=== PATIENT | male | born 1980 ===

== ENCOUNTER 2018-04-19 08:50 | Outpatient (CLI) | payer OTHER ==
[~2018-04-19] VITALS: Ht 180.3 cm; Wt 95.3 kg
== END 2018-04-19 09:15 | disposition home or self-care (01) ==
LOC: OFIC 805 08:50
DX: R42 Dizziness and giddiness (principal); H90.3 Sensorineural hearing loss, bilateral; H93.11 Tinnitus, right ear

== ENCOUNTER 2018-07-12 12:54 | Outpatient (CLI) | payer OTHER ==
[~2018-07-12] VITALS: Ht 152.4 cm; Wt 95.3 kg
== END 2018-07-12 13:15 | disposition home or self-care (01) ==
LOC: OFIC 805 12:54
DX: R42 Dizziness and giddiness (principal); H93.11 Tinnitus, right ear; H90.3 Sensorineural hearing loss, bilateral

== ENCOUNTER 2018-09-07 10:20 | Outpatient (CLI) | payer OTHER ==
[~2018-09-07] VITALS: Ht 152.4 cm; Wt 95.3 kg
== END 2018-09-07 10:40 | disposition home or self-care (01) ==
LOC: OFIC 805 10:20
DX: H90.41 Sensorineural hearing loss, unilateral, right ear, with unrestricted hearing on the contralateral side (principal); R42 Dizziness and giddiness; H93.11 Tinnitus, right ear

== ENCOUNTER 2019-04-01 08:02 | Outpatient (CLI) | payer OTHER ==
[~2019-04-01] VITALS: Ht 152.4 cm; Wt 95.3 kg
== END 2019-04-01 08:20 | disposition home or self-care (01) ==
LOC: OFIC 805 08:02
DX: H93.11 Tinnitus, right ear (principal); H90.41 Sensorineural hearing loss, unilateral, right ear, with unrestricted hearing on the contralateral side; R42 Dizziness and giddiness; H81.01 Meniere's disease, right ear

== ENCOUNTER 2019-04-29 07:56 | Outpatient (CLI) | payer OTHER ==
[~2019-04-29] VITALS: Ht 152.4 cm; Wt 54.4 kg
== END 2019-04-29 08:15 | disposition home or self-care (01) ==
LOC: OFIC 805 07:56
DX: H93.11 Tinnitus, right ear (principal); R42 Dizziness and giddiness; H90.41 Sensorineural hearing loss, unilateral, right ear, with unrestricted hearing on the contralateral side; H81.01 Meniere's disease, right ear; H81.11 Benign paroxysmal vertigo, right ear

== ENCOUNTER 2019-09-02 07:56 | Outpatient (CLI) | payer OTHER ==
[~2019-09-02] VITALS: Ht 152.4 cm; Wt 95.3 kg
== END 2019-09-02 08:00 | disposition home or self-care (01) ==
LOC: OFIC 805 07:56
DX: H93.11 Tinnitus, right ear (principal); H90.41 Sensorineural hearing loss, unilateral, right ear, with unrestricted hearing on the contralateral side; H81.11 Benign paroxysmal vertigo, right ear